=== PATIENT | female | born 1985 | race Caucasian/White ===

== ENCOUNTER 2017-09-05 16:07 | Emergency (ER) | payer MEDICAID, OTHER, SELFPAY ==
[~2017-09-05] VITALS: Ht 162.6 cm; Wt 74.5 kg
[2017-09-05] MEDS ORDERED: VICO5TAB16 PO (16:17)
[2017-09-05] MEDS ORDERED: AMOX500C PO (19:18)
[2017-09-05] MEDS ORDERED: NORCOTAB PO (19:18)
[2017-09-05 19:22] VITALS: BP 116/74
[2017-09-05] MEDS ORDERED: AMOXICILLIN 500 MG CAP PO ONE (19:30)
[2017-09-05] MEDS ORDERED: IBUPROFEN 600 MG TAB PO ONE (19:30)
[2017-09-05] MEDS ORDERED: NORCO 5/325MG TABLET (BULK FOR ED) PO ONE (19:30)
== END 2017-09-05 19:26 | disposition home or self-care (01) ==
LOC: M ED 16:07
DX: K02.9 Dental caries, unspecified (principal); H92.02 Otalgia, left ear; K01.1 Impacted teeth